=== PATIENT | female | born 2005 | race Caucasian/White ===

== ENCOUNTER → 2024-03-24 11:50 | Outpatient (REF) | payer BC, SELFPAY | LOC: RCS 11:50 | PROVIDERS: ATTENDING PHYSICIAN Pediatrics | DX: R63.4 Abnormal weight loss (principal); F50.00 Anorexia nervosa, unspecified | CPT/HCPCS: 93005 ==

== ENCOUNTER → 2024-03-24 14:47 | Outpatient (REF) | payer BC, SELFPAY | LOC: WDC 14:47 | PROVIDERS: ATTENDING PHYSICIAN Nurse Practitioner Adult Health | DX: R92.8 Other abnormal and inconclusive findings on diagnostic imaging of breast (principal) | CPT/HCPCS: 76642 ==